=== PATIENT | female | born 1960 | race Caucasian/White ===

== ENCOUNTER 2020-09-24 06:00 | Outpatient (RCR) | payer OTHER, SELFPAY | END 2020-10-11 23:59 | disposition home or self-care (01) | LOC: MPT 06:00 | PROVIDERS: Family Provider Nurse Practitioner Family; PCP Nurse Practitioner Family; Referring Provider Nurse Practitioner Family; Visit Provider Nurse Practitioner Family | DX: M54.16 Radiculopathy, lumbar region (principal) | CPT/HCPCS: 97110; 97140; 97161 ==

== ENCOUNTER 2020-10-05 06:55 | Outpatient (CLI) | payer OTHER, SELFPAY ==
--- NOTE | 2020-10-05 07:15 | MR_ITS ---
WS: [id number] MRI LUMBAR SPINE NONCONTRAST TECHNIQUE: Sagittal T1, T2 and STIR imaging. Axial T1 and T2 imaging. CLINICAL INFORMATION: RADICULOPATHY LUMBAR REGION COMPARISON: None. FINDINGS: Mild lumbar curve. No acute compression. No high-grade central canal stenosis. T11-T12: Left pericentral protrusion with slight effacement of ventral thecal sac. Mild left foramina l narrowing. Spinal canal and right foramen are patent. Mild facet arthropathy. T12-L1: Normal L1-L2: No significant disc bulging. Mild facet arthropathy. Spinal canal and foramen are patent. L2-L3: Right proximal foraminal disc protrusion with slight narrowing of the right subarticular reces s. Mild right foraminal narrowing. Spinal canal and left foramen are patent. Moderate facet arthropat hy. L3-L4: Mild annular bulging. Small bilateral foraminal protrusions right greater than left with mild right greater than left foraminal narrowing. Mild facet arthropathy. L4-L5: Shallow central disc protrusion with slight effacement of ventral thecal sac. Contact of the t raversing L5 nerve roots left greater than right. Tiny annular fissure. Mild right and no significant left foraminal narrowing. Mild central canal stenosis. Mild facet arthropathy. L5-S1: No significant disc bulging. Moderate facet arthropathy. Spinal canal and foramen are patent. Visualized pelvic bony structures: Normal. Paravertebral soft tissues: Normal. Partially visualized pelvic kidney. MR/MR lumbar spine wo con* [id number] IMPRESSION: 1. Mild lumbar curve. No acute compression. No high-grade central canal stenos is. 2. Small left pericentral protrusion T11-T12 with mild left T11-T12 foraminal narrowing. 3. Small right proximal foraminal disc protrusion L2-3 with mild right foramin al narrowing. 4. Small right foraminal protrusion with mild right L3-4 foraminal narrowing. 5. Shallow central disc protrusion L4-5 with mild central canal stenosis. Slig ht impingement traversing L5 nerve roots bilaterally. Small annular fissure. 6. Moderate facet arthropathy L5-S1.
== END 2020-10-05 06:56 | disposition home or self-care (01) ==
LOC: RADSHAW 06:58
PROVIDERS: Family Provider Nurse Practitioner Family; PCP Nurse Practitioner Family; Visit Provider Nurse Practitioner Family
DX: M54.16 Radiculopathy, lumbar region (principal); M47.817 Spondylosis without myelopathy or radiculopathy, lumbosacral region; M51.26 Other intervertebral disc displacement, lumbar region; M51.24 Other intervertebral disc displacement, thoracic region
CPT/HCPCS: 72148

== ENCOUNTER 2021-06-14 08:20 | Outpatient (CLI) | payer OTHER, SELFPAY ==
--- NOTE | 2021-06-14 08:45 | MR_ITS ---
WS: [id number] MRI LUMBAR SPINE WITH AND WITHOUT CONTRAST. HISTORY: LUMBAR RADICULOPATHY, LUMBAGO COMPARISON: None available. TECHNIQUE: Sagittal and axial multisequence imaging is submitted. Sagittal and axial T1 fat sat seque nces post-MultiHance 18 cc IV. Moderate increase in the cervical lordosis and thoracic kyphosis. Similar to the prior examination. D isc bulging and osteophytosis and mild thoracolumbar scoliosis. Central disc protrusion at C4-5 appro aches the ventral cervical cord. Posterior lumbar alignment is normal. No acute fractures. There is a small amount of soft tissue umair a and postsurgical changes at the L4-5 disc level and the paravertebral soft tissues. Increased T2 si gnal in the facet joints at L3-4 and L4-5 bilaterally. Mild disc desiccation at L4-5 and L5-S1. Conus terminates normally at L1. T11-12: LEFT paracentral disc protrusion is again evident on the sagittal sequence with very slight e ffacement and contact on the ventral thecal sac. Very minimal narrowing of the LEFT foramen and artic ular recess. T12-L1: Negative. L1-L2: Mild ligamentum flavum and facet arthritis. No change or stenosis. L2-L3: Stable RIGHT subarticular and proximal foraminal disc protrusion. There is very slight contact on the traversing RIGHT L3 nerve root, similar to the prior study. Mild RIGHT subarticular and michelle inal stenosis. L3-L4: Mild annular disc bulging with moderate ligamentum flavum and facet arthritis. Small bilateral foraminal disc protrusions are unchanged. Disc and facet disease encroaching into the thecal sac. Mi ld bilateral subarticular and foraminal stenosis. L4-L5: Mild annular disc bulging. Mild osteophytic ridging. Previously described central disc protrus ion is no longer present. Bilateral laminectomy defects. There is extensive soft tissue enhancement a t the facet joints and the paravertebral soft tissues and extending to surround the thecal sac. There is mild enlargement and mild edema in the LEFT traversing L5 nerve root. Cannot confirm new or resid ual disc herniation. No focal areas of collection to suggest abscess. This postsurgical changes at th e disc level and postoperative site may all be normal. L5-S1: Mild annular disc bulging. No high-grade stenosis. Again noted is a pelvic kidney. No kidney is identified in the LEFT renal fossa. MR/MR lumbar spine wo/w con [id number] IMPRESSION: 1. New postoperative changes at the L4-5 disc level, the paravertebral soft ti ssues and laminectomy defects. No evidence for abscess or discitis. All these c hanges and the enhancement are normally seen postoperatively. 2. No recurrent disc protrusion at L4-5. 3. Mild enlargement and edema of the LEFT traversing L5 nerve root may indicat e a mild RIGHT neuritis. 4. LEFT paracentral disc protrusion at T11-12 is unchanged causing mild LEFT f oraminal and subarticular recess narrowing. 5. Stable RIGHT subarticular and proximal foraminal disc protrusion at L2-3. M ild stenosis. 6. Mild bilateral subarticular and foraminal stenosis at L3-4. Due to small fo raminal disc protrusions and facet arthritis. 7. LEFT pelvic kidney.
[2021-06-14 09:45] LABS: Blood Urea Nitrogen 12 mg/dL (8-23); Glomerular Filtration Rate 63.9 mL/min (90-130)
[2021-06-14] MEDS: gadobenate dimeglumine 20 mL vial IV (09:46)
== END 2021-06-14 08:21 | disposition home or self-care (01) ==
PROVIDERS: PCP Nurse Practitioner Family; Visit Provider Physical Medicine & Rehabilitation
DX: M54.16 Radiculopathy, lumbar region (principal); R60.0 Localized edema; M48.061 Spinal stenosis, lumbar region without neurogenic claudication; Q63.2 Ectopic kidney; M51.26 Other intervertebral disc displacement, lumbar region; M51.24 Other intervertebral disc displacement, thoracic region
CPT/HCPCS: 72158; 82565; 84520; A9577

== ENCOUNTER → 2022-06-01 10:37 | Outpatient (BNVA) | payer SELFPAY | PROVIDERS: PCP Nurse Practitioner Family; Visit Provider Emergency Medicine | DX: M25.561 Pain in right knee (principal) | CPT/HCPCS: 73562 ==